=== PATIENT | female | born 1965 | race Caucasian/White ===

== ENCOUNTER → 2018-07-23 13:06 | Outpatient (CLI) | payer MEDICARE, SELFPAY ==
[2018-07-23 13:51] LABS: Platelet Count 350 K/mm3 (142-424)
[2018-07-23 14:21] LABS: Activated Partial Thrombo Time 25.9 seconds (23.6-34.0); INR 0.94 (0.9-1.1); Prothrombin Time 9.7 seconds (9.4-11.8)
[2018-07-23 16:07] LABS: Blood Urea Nitrogen 11 mg/dL (7-18); Calcium 8.3 mg/dL (8.5-10.1); Carbon Dioxide 23 mmol/L (21.0-32.0); Chloride 104 mmol/L (98-107); Estimated Glomerular Filt Rate 66 ml/min (>60); GFR (African American) 80 ML/MIN (>60); Sodium 139 mmol/L (136-145)
[2018-07-23 16:19] LABS: Glucose 473 mg/dL (74-106)
== END ==
PROVIDERS: Visit Provider Physician Assistant Medical
DX: G95.9 Disease of spinal cord, unspecified (principal); R79.1 Abnormal coagulation profile
CPT/HCPCS: 36415; 80048; 85049; 85610; 85730

== ENCOUNTER 2018-08-13 13:17 | Outpatient (CLI) | payer MEDICARE, SELFPAY ==
[2018-08-13 13:25] VITALS: BP 143/96; PULSE 91; RESP 20; TEMP 37.7; O2SAT 100; BMI 25.7
[2018-08-13 14:05] VITALS: BP 148/82; PULSE 82; RESP 18; O2SAT 100
[2018-08-13 14:20] VITALS: BP 134/90; PULSE 82; RESP 18; TEMP 37.7; O2SAT 99
== END 2018-08-13 14:20 | disposition home or self-care (01) ==
LOC: INF 13:17
PROVIDERS: Visit Provider Emergency Medicine
DX: Z16.12 Extended spectrum beta lactamase (ESBL) resistance (principal)
CPT/HCPCS: 96365; J1335

== ENCOUNTER 2018-08-14 08:40 | Outpatient (CLI) | payer MEDICARE, SELFPAY ==
[2018-08-14 09:10] VITALS: BP 111/70; PULSE 106; RESP 20; TEMP 36.7; O2SAT 100
[2018-08-14 09:40] VITALS: BP 116/69; PULSE 101; RESP 20; O2SAT 99
[2018-08-14 10:05] VITALS: BP 113/67; PULSE 99; RESP 20; O2SAT 100
== END 2018-08-14 10:00 | disposition home or self-care (01) ==
LOC: INF 08:40
PROVIDERS: Visit Provider Emergency Medicine
DX: Z16.12 Extended spectrum beta lactamase (ESBL) resistance (principal)
CPT/HCPCS: 96365; J1335

== ENCOUNTER 2018-08-15 09:17 | Outpatient (CLI) | payer MEDICARE, SELFPAY ==
[2018-08-15 09:28] VITALS: BP 121/80; PULSE 84; RESP 18; TEMP 36.5; O2SAT 97
[2018-08-15 09:45] VITALS: BP 119/68; PULSE 80; RESP 18
[2018-08-15 10:26] VITALS: BP 122/68; PULSE 78; RESP 18; TEMP 36.6; O2SAT 98
== END 2018-08-15 10:27 | disposition home or self-care (01) ==
LOC: INF 09:18
PROVIDERS: Visit Provider Emergency Medicine
DX: N39.0 Urinary tract infection, site not specified (principal); Z16.12 Extended spectrum beta lactamase (ESBL) resistance
CPT/HCPCS: 96365; J1335

== ENCOUNTER 2018-08-16 09:18 | Outpatient (CLI) | payer MEDICARE, SELFPAY ==
[2018-08-16 09:30] VITALS: BP 128/70; PULSE 68; RESP 20; TEMP 36.9; O2SAT 96
[2018-08-16 10:00] VITALS: BP 112/74; PULSE 68; RESP 20; TEMP 36.9; O2SAT 96
== END 2018-08-16 10:15 | disposition home or self-care (01) ==
LOC: INF 09:19
PROVIDERS: Visit Provider Emergency Medicine
DX: N39.0 Urinary tract infection, site not specified (principal)
CPT/HCPCS: 96365; J1335

== ENCOUNTER 2018-08-18 09:15 | Outpatient (CLI) | payer MEDICARE, SELFPAY ==
[2018-08-18 10:52] VITALS: BP 141/81; PULSE 93; RESP 18; O2SAT 99
[2018-08-18 11:02] VITALS: BP 135/76; PULSE 93; RESP 12; TEMP 36.2; O2SAT 99
== END 2018-08-18 10:15 | disposition home or self-care (01) ==
LOC: INF 09:16
PROVIDERS: Visit Provider Emergency Medicine
DX: Z16.12 Extended spectrum beta lactamase (ESBL) resistance (principal)
CPT/HCPCS: 96365; J1335

== ENCOUNTER 2018-08-19 08:42 | Outpatient (CLI) | payer MEDICARE, SELFPAY ==
[2018-08-19 09:20] VITALS: BP 140/82; PULSE 62; RESP 20; TEMP 36.9; O2SAT 95
[2018-08-19 09:50] VITALS: BP 148/78; PULSE 68; RESP 20; TEMP 36.9; O2SAT 96
== END 2018-08-19 09:55 | disposition home or self-care (01) ==
LOC: INF 08:43
PROVIDERS: Visit Provider Emergency Medicine
DX: Z16.12 Extended spectrum beta lactamase (ESBL) resistance (principal)
CPT/HCPCS: 96365; J1335

== ENCOUNTER → 2018-08-20 10:22 | Outpatient (REF) | payer MEDICARE, SELFPAY | LOC: LAB 10:22 | PROVIDERS: Visit Provider Nurse Practitioner Family | DX: N39.0 Urinary tract infection, site not specified (principal) | CPT/HCPCS: 87086 ==

== ENCOUNTER 2018-08-20 11:36 | Outpatient (CLI) | payer MEDICARE, SELFPAY ==
[2018-08-20 12:03] VITALS: BP 137/81; PULSE 76; RESP 20; TEMP 36.7; O2SAT 100
[2018-08-20 12:33] VITALS: BP 134/79; PULSE 78; RESP 18; O2SAT 99
[2018-08-20 12:50] VITALS: BP 135/82; PULSE 74; RESP 18; O2SAT 100
== END 2018-08-20 12:55 | disposition home or self-care (01) ==
LOC: INF 11:36
PROVIDERS: PCP Emergency Medicine; Visit Provider Emergency Medicine
DX: N18.9 Chronic kidney disease, unspecified (principal); N18.5 Chronic kidney disease, stage 5; N18.4 Chronic kidney disease, stage 4 (severe); D63.1 Anemia in chronic kidney disease; Z16.12 Extended spectrum beta lactamase (ESBL) resistance; R82.90 Unspecified abnormal findings in urine
CPT/HCPCS: 87086; 96365; J1335

== ENCOUNTER 2018-08-21 11:23 | Outpatient (CLI) | payer MEDICARE, SELFPAY ==
[2018-08-21 11:55] VITALS: BP 141/74; PULSE 76; RESP 20; TEMP 36.7; O2SAT 99
[2018-08-21 12:25] VITALS: BP 140/80; PULSE 71; RESP 20; O2SAT 100
[2018-08-21 12:45] VITALS: BP 137/78; PULSE 74; RESP 20; O2SAT 99
== END 2018-08-21 12:50 | disposition home or self-care (01) ==
LOC: INF 11:23
PROVIDERS: PCP Emergency Medicine; Visit Provider Emergency Medicine
DX: N39.0 Urinary tract infection, site not specified (principal)
CPT/HCPCS: 96365; J1335

== ENCOUNTER 2018-08-22 08:21 | Outpatient (CLI) | payer MEDICARE, SELFPAY ==
--- NOTE | 2018-08-22 08:23 | CT_ITS ---
CT abdomen pelvis wo con CLINICAL INDICATION: Left flank pain, low back pain, painful urination ITS.REASON: Flank pain and Hematuria ORDERING PHYSICIAN: Roger Douglas PATIENT AGE: 53 years COMPARISON: None TECHNIQUE: Axial images obtained with sagittal and coronal reformats. All CT scans at the facility use one or more dose reduction, viz: automated exposure control, ma/kV adjustment per patient size (including targeted exams where dose is matched to indication, i.e. head), or iterative reconstruction technique. PROCEDURE: Oral Contrast: None IV Contrast: None . FINDINGS: Lung bases are clear. Prior cholecystectomy without ductal dilatation. The liver, spleen, adrenal glands, and pancreas have an unremarkable unenhanced CT appearance. No renal or ureteral calculi. No hydronephrosis. No renal mass. Prior gastric bypass. There is mild amount of retained colonic feces. No evidence of diverticulitis. Reported prior appendectomy with a small diverticulum or appendiceal stump noted at the cecum posteriorly. There is a small amount of gas in the urinary bladder which could be due to recent catheterization. Please correlate clinically. Gas-forming infection or vesicoenteric fistula could also cause this finding. There are postsurgical changes of the lumbar spine with prior posterior fusion at L5-S1. IMPRESSION: 1. No renal or ureteral calculi. No hydronephrosis. 2. Nonspecific air in urinary bladder as discussed above.
[2018-08-22 09:20] VITALS: BP 126/77; PULSE 75; RESP 18; TEMP 36.6; O2SAT 100
[2018-08-22 09:45] VITALS: BP 120/75; PULSE 74; RESP 16
[2018-08-22 10:10] VITALS: BP 131/72; PULSE 77; RESP 16
== END 2018-08-22 10:35 | disposition home or self-care (01) ==
LOC: RAD 08:22 → INF 08:59
PROVIDERS: PCP Emergency Medicine; Visit Provider Nurse Practitioner Family
DX: R10.9 Unspecified abdominal pain (principal); R31.9 Hematuria, unspecified; N39.0 Urinary tract infection, site not specified
CPT/HCPCS: 74176; 96365; J1335